=== PATIENT | female | born 1955 | race Asian ===

== ENCOUNTER 2024-02-11 13:57 | Emergency (ER) | payer MEDICARE ==
[~2024-02-11] VITALS: Ht 157.5 cm; Wt 64.9 kg
[2024-02-11 14:54] VITALS: BP_SYST 151; PULSE 87; RESP 18; TEMP 97.1; O2SAT 96
[2024-02-11] MEDS: METOCLOPRAMIDE HCL 10 MG/2 ML VIAL IVP ONE (15:31)
[2024-02-11] MEDS: MECLIZINE HCL 25 MG TABLET (ANITVERT) PO ONE (15:31)
[2024-02-11 16:13] LABS: ALANINE AMINOTRANSFERASE 13 U/L (12-78); ALBUMIN 3.7 g/dL (3.4-4.8); ANION GAP 11 (5-15); ASPARTATE AMINOTRANSFERASE 19 U/L (10-37); BASOPHILS % (AUTO) 0.3 % (0.0-2.0); BILIRUBIN,DIRECT 0.1 mg/dL (0.0-0.3); CALCIUM 9.2 mg/dL (8.4-11.0); CARBON DIOXIDE 26 mmol/L (23-29); CHLORIDE 103 mmol/L (98-107); CREATINE KINASE, TOTAL 58 U/L (26-192); CREATININE 0.56 mg/dL (0.55-1.30); EOSINOPHILS # (AUTO) 0.1 K/uL (0.0-0.4); EOSINOPHILS % (AUTO) 0.5 % (0.0-4.0); GFR AFRICAN AMERICAN 138 mL/min (>90); GLUCOSE 123 mg/dL (74-106); HEMATOCRIT 39.6 % (36-48); HEMOGLOBIN 13.6 g/dL (12.0-16.0); LYMPHOCYTES # (AUTO) 1.4 K/uL (1.0-5.5); LYMPHOCYTES % (AUTO) 13.2 % (20.5-51.5); MEAN CORPUSCULAR HEMOGLOBIN 31 pg (27-31); MEAN CORPUSCULAR HGB CONC 34 % (32-36); MEAN CORPUSCULAR VOLUME 91 fL (79.0-98.0); MONOCYTES # (AUTO) 0.5 K/uL (0.0-1.0); MONOCYTES % (AUTO) 4.7 % (1.7-9.3); NEUTROPHILS # (AUTO) 8.5 K/uL (1.8-7.7); NEUTROPHILS % (AUTO) 81.3 % (40.0-70.0); PLATELET COUNT (AUTO) 306 K/uL (130-430); POTASSIUM 4.2 mmol/L (3.5-5.1); RED BLOOD CELL COUNT(AUTO) 4.35 MIL/uL (4.2-6.2); RED CELL DISTRIBUTION WIDTH 12.7 % (9.0-15.0); SODIUM SERUM 140 mmol/L (136-145); TOTAL BILIRUBIN 0.5 mg/dL (0.0-1.0); TOTAL PROTEIN, SERUM 7.3 g/dL (6.4-8.3); UREA NITROGEN, BLOOD 8 mg/dL (8-21); WHITE BLOOD COUNT (AUTO) 10.5 K/uL (4.8-10.8)
[2024-02-11 16:15] LABS: GFR NON AFRICAN-AMERICAN 114 mL/min (>90)
[2024-02-11 16:23] LABS: INR 0.9 (0.8-1.2); PROTHROMBIN TIME 9.8 SECS (9.5-12.5)
[2024-02-11] MEDS ORDERED: MECL-261 PO (17:51)
[2024-02-11 18:36] VITALS: BP_SYST 151; PULSE 86; RESP 18; TEMP 98.1; O2SAT 96
== END 2024-02-11 18:36 | disposition home or self-care (01) ==
LOC: SED 13:57
DX: R42 Dizziness and giddiness (principal); R11.2 Nausea with vomiting, unspecified; H55.09 Other forms of nystagmus
CPT/HCPCS: 99285; 96374; 70450; 71045; 80076; 80048; 82550; 85025; 85610; 85730; 84484; 36415; 93005; J2765; J8597